=== PATIENT | female | born 1940 | race Caucasian/White ===

== ENCOUNTER 2016-05-23 12:15 | Outpatient (RCR) | payer MEDICARE ==
--- NOTE | 2016-05-12 13:45 | PT/OT/ST INITIAL EVALUATION ---
Department of Health and Human Services Form Approved Health Care Financing Administration OMB No. [id number] PLAN OF CARE/ASSESSMENT FOR OUTPATIENT REHABILITATION (Complete for Initial Claims Only) 1. LAST NAME Andrew FIRST NAME Payton Schafer 2. ACC # [id number] [facility]. [facility] [id number] 4. PROVIDER NO. [id number] 5. TYPE: X PT 6. PRIOR HOSPITALIZATION NA 7. PRIMARY DX M54.5-low back pain 8. SECONDARY DX Weakness and difficulty walking, unsteadiness, and lack of coordination. 9. ONSET DATE 8 months ago 10. REFERRAL DATE 05/05/2016 11. SOC. DATE 05/11/2016 9:03 a.m. to 9:47 a.m. 12. REFERRING PHYSICIAN Jocelyne Sanchez APRN 13. CHARGES PT evaluation low complexity 92672 Therapeutic exercise 05839, 2 units 14. G CODES The Oswestry rates the patient as L1042-DH 40% limited and the goal is F1790-DO 0% limited in order to be able to ambulate 10 blocks without a Trendelenburg gait pattern in order to improve safety with community activities. 15. PRIOR LEVEL OF FUNCTION; PERTINENT HISTORY (Prior therapy results, reason for referral.) S: Prior to therapy the patient consented to today's evaluation and treatment. The patient is a 75-year-old female referred to physical therapy by Jocelyne Sanchez APRN to address functional limitations secondary to low back pain. Mechanism of injury: The patient reports that she has had back pain off and on for several years. She states that about 8 months ago she tripped over a curb, fell back and hit her head and her low back and at that time she also lost control of her bowel movements, which has not occurred again since that date and the physician's office was aware of that happening. Primary complaint: Low back pain Occupational and social history: The patient is retired. Functional performance/Prior level of function: The patient had back pain off and on for several years. The patient tripped and fell on her back approximately 8 months ago and her pain has progressively gotten worse and she has a lot of difficulty with walking. Has tried to use a cane, but she states it does not help much and does not use it. The patient rates the current pain level as 3 to 4/10 now and at worst 5/10 and describes it as a sharp pain. Obstacles to delivery of care: None noted. Aggravating factors include walking and sitting for long periods. Relieving factors: None noted. Diagnostic testing: None performed. Past medical history includes having IBS with stomach problems, pancreatitis, and depression which is controlled, vascular problems including having to have stents placed in her heart 3 different times. She has seen her physician recently and her heart is doing well, as well as hypertension which is controlled, hypothyroid which is controlled. Past surgical history includes having stents placed in her heart 3 different times and gallbladder removed. Current medications: Includes a list in the chart including antacids, decongestants, multivitamin, B complex W/C, vitamin C, vitamin D3, gas relief, probiotic, Tylenol, Tylenol arthritis, baby aspirin, biotin, Refresh tears, fluticasone spray, nystatin cream, hydrocodone, acetaminophen, furosemide, atenolol, losartan, atorvastatin, levothyroxine, Citalopram, and Voltaren gel. The patient will be starting a different acid reducing medication as of 05/14/2016 for 10 days and then rechecking with physician. Leisure activities: Liking to walk and doing activities at the [facility]. She lives at the [facility] in [place]. Activity level: Listed as low. Health rating: Overall health rating is listed as good. The patient's goal for physical therapy includes to feel better. 16. INITIAL ASSESSMENT/SAFETY PRECAUTIONS/MEDICAL COMPLICATIONS (Level of function at start of care. Be specific, use objective measures, list problems.) O: APPEARANCE, OBSERVATION AND GAIT: The patient reports that she lives at the [facility] at [place] so there are no stairs. The patient reports that she cannot carry groceries very well due to pain. She has tried using a cane, but she is currently not using it. She does state that she feels off balance. She states that she feels like she has to bend forward with walking and uses a cart when in a store and she does not think that she can probably walk any further than 1 block. The patient, with single leg stance, demonstrates a Trendelenburg on both legs. In a standing position, her right ankle pronates more than her left. The patient reports that she does not have pain into her legs and states that she does feel pain into her buttocks on both sides at times. PALPATION: No significant tenderness to palpation is noted of the low back. SPECIAL TESTS: None. RANGE OF MOTION/FLEXIBILITY: Active range of motion of the lumbar spine into flexion 100%, extension 100%, side bending bilateral 100%, rotation bilateral 85%. No pain into ranges of motion. STRENGTH: Manual muscle testing of her hips flexion bilateral 4/5, abduction bilateral 4/5, knee flexion bilateral 4+/5. Knee extension bilateral 4+/5, hip extension bilateral 4-/5. For ankle dorsiflexion and plantar flexion approximately 2/5. The patient is unable to do a full heel raise or toe raise on a single leg. TODAY'S TREATMENT: Included the initial PT evaluation followed by therapeutic exercise designed to develop an initial home exercise program as the patient will be gone for a week and then will return to physical therapy when she returns home from her trip. 17. INITIAL POC: (Specify procedures, modalities, short and buttermilk drier operator goals) A: The patient presents with the diagnosis of low back pain with functional limitations of weakness, difficulty walking, unsteadiness and loss of coordination. The patient has difficulty lying on her back and tends to sleep on her right side with a pillow between her knees. In a standing position her iliac crests are equal, but do show signs of hip abductor and glute weakness as initiated by Trendelenburg stance when tested on each leg. When the patient ambulates there is a lot of lateral shifting of her upper body. The patient would benefit from physical therapy in order to help restore proper mechanics with ambulating and with lifting light to moderate weighted items with proper form in order to decrease strain to her low back and to improve core strength in order for her to be able to walk further than 1 block to help with activities around her home. PROGNOSIS: This patient has a good prognosis for increased overall functional capacity with regular therapy attendance and compliance with prescribed home exercise program. CONTRAINDICATIONS, PRECAUTIONS AND OBSTACLES TO TREATMENT: No significant contraindications, precautions, or obstacles are noted at this time. GOALS: 1. The patient was rated by the Oswestry as B2126-BR 40% limited and the goal is X7256-QQ 0% limited in order to be able to ambulate approximately 10 blocks without loss of balance and with proper gait and no Trendelenburg sign. 2. The patient is to have a decrease in pain in her low back to 2/10 in 6 weeks in order to be able to ambulate 10 blocks without deviation to improve her ability to participate in community activities at the [facility] to work in her home. 3. The patient is to have a manual muscle testing of bilateral lower extremities and core to 4+/5 in 6 weeks in order to be able to ambulate without a Trendelenburg gait and to decrease pain in her back for return to activities and walking for exercise. 4. The patient is to be independent with a progressive home exercise program. The prognosis and goals were discussed with the patient, as well as the expected outcomes and possible risks. The patient agreed to undergo PT evaluation and further treatment. P: Plan to treat this patient 2 times a week for 6 weeks to address functional limitations secondary to low back pain including weakness, difficulty walking, unsteadiness and loss of coordination. Treatment to include modalities for pain and inflammation, manual therapy interventions, therapeutic exercise, active and passive range of motion, gait training, balance training, neuro reeducation and patient education and prescription of progressive home exercise program as tolerable. 18. FREQUENCY 19. DURATION 20. FUNCTIONAL LEVEL (End of claim period) 21. PHYSICIAN SIGNATURE ? ON FILE OR ENTER HERE: 22. DATE: I certify the need for these services furnished under this plan of care and if for partial hospitalization. 23. CERTIFICATION FROM THROUGH [facility]700
== END 2016-06-20 10:19 | disposition home or self-care (01) ==
LOC: PT 12:15
PROVIDERS: ATTEND Nurse Practitioner Family
DX: M54.5 Low back pain (principal); R26.81 Unsteadiness on feet
CPT/HCPCS: 97110; 97140; 97161; G8978; G8979

== ENCOUNTER → 2016-05-23 | Outpatient (CLI) | payer MEDICARE | LOC: RAD 14:46 | PROVIDERS: ATTEND Nurse Practitioner Family | DX: Z53.8 Procedure and treatment not carried out for other reasons (principal) ==

== ENCOUNTER → 2016-05-23 | Outpatient (REF) | payer MEDICARE ==
[2016-05-23 15:30] LABS: ALBUMIN 4.3 g/dL (3.4-5.0); ANION GAP 15.8 MEQ/L (3-15); CALCULATED IONIZED CALCIUM 4.4 mg/dL (3.8-4.6); TOTAL PROTEIN 7.1 g/dL (6.4-8.5)
== END ==
LOC: LAB 14:47
PROVIDERS: ATTEND Nurse Practitioner Family
DX: E78.4 Other hyperlipidemia (principal); E03.8 Other specified hypothyroidism; M54.5 Low back pain; M48.06 Spinal stenosis, lumbar region
CPT/HCPCS: 72148; 80053; 80061; 84443

== ENCOUNTER → 2016-05-30 | Outpatient (CLI) | payer MEDICARE ==
[~2016-05-30] MED LIST: methylPREDNISolone 80 MG/ML (DEPO MEDROL) VIAL IM ONE
== END ==
LOC: PMC 12:54
PROVIDERS: ATTEND Family Medicine
DX: M51.36 Other intervertebral disc degeneration, lumbar region (principal); E03.9 Hypothyroidism, unspecified; E78.5 Hyperlipidemia, unspecified; K21.9 Gastro-esophageal reflux disease without esophagitis
CPT/HCPCS: 62323; J1040

== ENCOUNTER → 2016-07-25 | Outpatient (CLI) | payer MEDICARE, OTHER ==
[2016-07-25 10:02] LABS: ALBUMIN 4.1 g/dL (3.4-5.0); ANION GAP 15.3 MEQ/L (3-15); CALCULATED IONIZED CALCIUM 4.1 mg/dL (3.8-4.6); TOTAL PROTEIN 7.1 g/dL (6.4-8.5)
== END ==
LOC: LAB 09:33
PROVIDERS: ATTEND Family Medicine
DX: E78.5 Hyperlipidemia, unspecified (principal); E03.9 Hypothyroidism, unspecified
CPT/HCPCS: 36415; 80053; 80061; 84443

== ENCOUNTER 2016-08-11 15:45 | Outpatient (RCR) | payer MEDICARE, OTHER ==
--- NOTE | 2016-08-11 11:58 | PT/OT/ST INITIAL EVALUATION ---
Department of Health and Human Services Form Approved [facility] Care Financing Administration OMB No. [id number] PLAN OF CARE/ASSESSMENT FOR OUTPATIENT REHABILITATION (Complete for Initial Claims Only) 1. PATIENT'S NAME Payton Morales 2. ACC # [id number] 3. [facility] [id number] 4. PROVIDER NO. [id number] 5. TYPE: PT 6. PRIOR HOSPITALIZATION None 7. PRIMARY DX Low back pain 8. SECONDARY DX Lumbar spinal stenosis. 9. ONSET DATE Approximately 1 year ago 10. REFERRAL DATE 07/25/2016 11. SOC. DATE 08/04/2016 12. TIME OF EVAL 14:00 12. REFERRING PHYSICIAN Jocelyne Sanchez APRN 13. CHARGES/UNITS Evaluation. Therex ultrasound. 14. G CODES CK for mobility 15. PRIOR LEVEL OF FUNCTION; PERTINENT HISTORY (Prior therapy results, reason for referral.) S: Reason for referral: The patient was referred to physical therapy by Jocelyne Sanchez with the diagnoses of lumbar stenosis and back pain. The patient reports she has been experiencing pain at her back for approximately 1 year. She noted she has increased pain with walking and standing, has increased difficulty going up stairs if she having to walk longer distances she uses a 4-wheeled walker. Occupational and social health history: She is retired. Pain level: Current pain rating is 8/10. Diagnostic testing: None. Past medical history: Heart problems, high BP, ulcers and depression. Current medications: Gabapentin, Tylenol Arthritis and she uses Aspercreme to help relieve pain. The patient did receive an epidural earlier with year with temporarily relief. Personal health rating: Fair. Patient's Goal: The patient's goal for therapy is to quit hurting. 16. INITIAL ASSESSMENT/SAFETY PRECAUTIONS/MEDICAL COMPLICATIONS (Level of function at start of care. Be specific, use objective measures, list problems.) O: APPEARANCE, OBSERVATION AND GAIT: The patient is a 76-year-old female. She demonstrates forward head posture, rounded shoulders, kyphotic thoracic spine with forward flexed posture, decreased lumbar lordosis and mild anterior pelvic tilt. She does have a scoliotic curve with right thoracic convexity left lumbar convexity. Left hip is approximately an inch and a half higher than right. Gait - The patient ambulates with a forward flexed posture and a left lateral Trendelenburg. PALPATION: The patient has tenderness to palpation at bilateral SI joints and into both glutes. Increased tenderness also noted at her left lateral hip at trochanteric bursa and glute med region. RANGE OF MOTION/FLEXIBILITY: Trunk range of motion/flexion normal limit, extension 50%. Hamstring flexibility 90 degrees. Piriformis flexibility is moderately limited bilaterally. STRENGTH: Hip flexion 4+/5 manual muscle test. Knee extension 4+/5 manual muscle test. Knee flexion 4+/5 manual muscle test. Hip abduction 4/5 manual muscle test. Trunk stabilization was 4-/5 manual muscle test. TODAY'S TREATMENT: Treatment included initial evaluation followed by therapeutic exercise and instruction on home exercise program. Treatment was ended with ultrasound to lumbosacral region and left lateral hip. 17. INITIAL POC: (Specify procedures, modalities, short and director long term care goals) A: Patient presents to physical therapy with low back pain at her lumbosacral region and pain at left hip. PROGNOSIS: The patient will benefit from physical therapy to help manage pain and progress with core strengthening, stabilization and flexibility. SHORT TERM GOALS: 1. The patient to be compliant with home exercise program in 2 weeks. 2. The patient to demonstrate half a muscle grade improvement in lower extremity and core strength in 4 weeks. 3. The patient to report 50 percent less pain with standing and walking activities in 6 weeks. 4. The patient to report a 10 percent improvement in modified oswestry score in 6 weeks. P: The patient will be 2 times a week over the next 6 weeks. Treatment to include modalities, manual therapy to decrease pain and inflammation. We will progress the patient with range of motion, flexibility, stabilization and strengthening activities. 18. FREQUENCY 19. DURATION 20. FUNCTIONAL LEVEL (End of claim period) 21. PHYSICIAN SIGNATURE ? ON FILE OR ENTER HERE: 22. DATE: I certify the need for these services furnished under this plan of care and if for partial hospitalization. 23. CERTIFICATION FROM THROUGH [facility]-700
== END 2016-08-15 09:59 | disposition home or self-care (01) ==
LOC: PT 15:45
PROVIDERS: ATTEND Nurse Practitioner Family
DX: M48.06 Spinal stenosis, lumbar region (principal)
CPT/HCPCS: 97035; 97110; 97161; G8978; G8979